=== PATIENT | female | born 1975 | race Caucasian/White ===

== ENCOUNTER → 2020-02-22 | Outpatient (CLI) | payer OTHER ==
--- NOTE | 2020-02-22 16:24 | RAD ---
CHEST PA LATERAL History: Shortness of air for one week after fall onto chest from a seizure Comparison: May 17, 2015 Findings: 2 views of the chest are submitted. There is no infiltrate, pneumothorax, or effusion. Pericardial cardiac silhouette is within normal limits in size. Impression: 1. There is no radiographic evidence of acute cardiopulmonary disease. Electronically signed by: Pepito De La Vega MD (02/22/2020 4:21 PM) [id number]
== END ==
LOC: PMG 15:28
PROVIDERS: ATTEND Physician Assistant Medical
DX: R06.02 Shortness of breath (principal); W19.XXXA Unspecified fall, initial encounter; Y93.89 Activity, other specified; Y92.89 Other specified places as the place of occurrence of the external cause; Y99.8 Other external cause status
CPT/HCPCS: 71046